=== PATIENT | female | born 1940 | race Two or more races ===

== ENCOUNTER 2023-09-04 05:56 | Day surgery (SDC) | payer OTHER ==
[~2023-09-04 05:56] MED LIST: CRESTOR10 MG PO; DIOVAN320 MG PO; SYNTHROID50 MCG PO
[2023-09-04] MEDS ORDERED: TRAM1TAB98 PO (12:52)
[2023-09-04] MEDS ORDERED: MACROBID 100 M100 MG PO (12:52)
== END 2023-09-04 16:55 | disposition home or self-care (01) ==
LOC: CIR.AMB 05:56
PROVIDERS: ATTEND Obstetrics & Gynecology Gynecology
DX: N81.11 Cystocele, midline (principal)